=== PATIENT | female | born 1970 | race Caucasian/White ===

== ENCOUNTER 2016-11-30 15:31 | Inpatient (IN) | payer MEDICARE, MEDICAID ==
[~2016-11-30] VITALS: Ht 170.2 cm; Wt 83.2 kg
--- NOTE | ~2016-11-30 | CN ---
PATIENT NAME:DEREK MASTERS MEDICAL RECORD: [id number] : 66 LOCATION:D.MS [id number] ADMIT DATE: 12/01/16 ACCOUNT: [id number] CONSULTING PHYSICIAN: POLA NELSON MD REFERRING PHYSICIAN: MELISSA ALLRED MD DATE OF CONSULTATION: 12/08/2016 Surgery Consultation CHIEF COMPLAINT: Abscess. HISTORY OF PRESENT ILLNESS: Ms. Mastres is a 46-year-old white female with pancreatitis and alcoholic liver cirrhosis, who was noted to have some painful lesions that come up on her left wrist and her posterior neck. These came up over the last few days and have gotten large quite quickly. The one on her posterior neck has grown significantly in size, it is red and tender to touch. She has had no purulence or drainage from either one of these. She has had lesions like this in the past. PAST MEDICAL HISTORY: 1. Alcoholic cirrhosis. 2. Hypertension. 3. History of TIAs. 4. History of seizures. 5. Depression. 6. Anxiety. PAST SURGICAL HISTORY: Cholecystectomy. ALLERGIES: PENICILLIN, TYLENOL, IODINE, FLAGYL, DARVOCET, TEGRETOL AND STEROIDS. MEDICATIONS: Effexor, Neurontin, Desyrel, fentanyl patch and oxycodone. SOCIAL HISTORY: She is a current everyday smoker. Alcohol, she has a history of alcohol abuse. FAMILY HISTORY: Noncontributory. REVIEW OF SYSTEMS: GENERAL: No fevers, chills, weakness or fatigue. She does have history of anxiety and depression. CENTRAL NERVOUS SYSTEM: Denies headaches, numbness or tingling. CARDIOVASCULAR: She has got chest pain, but no palpitations. INFECTIOUS DISEASE: No fever or chills. GASTROINTESTINAL: She reports nausea, vomiting, abdominal pain, but no diarrhea or constipation. HEMATOLOGIC: No known bleeding disorders. PULMONARY: No cough, wheezing or shortness of breath. MUSCULOSKELETAL: No joint pain, but she has pain in her neck. SKIN: She has multiple lesions on the skin. PHYSICAL EXAMINATION: VITAL SIGNS: She is currently afebrile. Vital signs are stable. GENERAL: She is mildly obese female, in no apparent distress. CONSULT REPORT [id number] DEREK MASTERS HEENT: Sclerae is nonicteric. HEART: Regular rate and rhythm. LUNGS: There is no audible wheezing. EXTREMITIES: She has no swelling to any of her extremities. SKIN: She has a small abscess on the left lateral wrist, another larger indurated region with erythema on the posterior neck with no palpable fluctuance, but significant tenderness to palpation. She also has a small area of cellulitis on her chin. NEUROLOGIC: Grossly intact. ASSESSMENT: 1. Neck and left wrist cellulitis/abscess. 2. Alcoholic cirrhosis. 3. Acute pancreatitis. 4. Acute leukocytosis. PLAN: We will schedule the patient for an I&D of the neck and left wrist abscesses tomorrow in the operating room. We will continue p.o. antibiotics for the time being. TRANSINT:[id number] Voice Confirmation ID: [id number] DOCUMENT ID: [id number] POLA NELSON MD CC: [id number] DICTATION DATE: 12/09/16 1545 HEAD OF MARKETING ADOMETRY: 12/09/16 2144 ADM IN [facility] [address] [place] [address]
--- NOTE | ~2016-11-30 | OP ---
PATIENT NAME: DEREK VALENZUELA MEDICAL RECORD: [id number] :66 LOCATION:D.MS [id number] ADMISSION DATE:12/01/16 SURGEON: POLA NELSON MD OPERATION DATE: 12/01/16 DATE OF OPERATION: 12/09/2016 PREOPERATIVE DIAGNOSES: 1. Posterior neck and left wrist abscess. 2. Pancreatitis. 3. Alcoholic liver cirrhosis. 4. Hypertension. 5. Diabetes mellitus. POSTOPERATIVE DIAGNOSES: 1. Posterior neck and left wrist abscess. 2. Pancreatitis. 3. Alcoholic liver cirrhosis. 4. Hypertension. 5. Diabetes mellitus. PROCEDURE: I&D of the posterior neck and left wrist. SURGEON: Pola Nelson MD REPORT OF PROCEDURE: The patient's posterior neck and left wrist were prepped and draped in sterile fashion. A skin incision was made overlying the lesion on the left neck and there was some purulent material encountered. Cultures were taken times 2. The wound was then irrigated out with normal saline and suctioned free of any fluid. The wound was then packed with quarter-inch plain packing strips and dressed with gauze and tape. The left wrist was then approached. Again, a small incision was made transversely over the area of fluctuance and a small amount of pus was encountered. The pus was irrigated out with peroxide and suctioned free. We then packed this with plain quarter inch packing strips and dressed it with a Band-Aid. COMPLICATIONS: None. CONDITION: Stable. ANESTHESIA: General endotracheal. BLOOD LOSS: Minimal. TRANSINT:[id number] Voice Confirmation ID: [id number] DOCUMENT ID: [id number] POLA NELSON MD CC: [id number] DICTATION DATE: 12/09/16 1541 CABBAGE SALTER: 12/09/16 213 ADM IN [facility] [address] [place] [address]
--- NOTE | 2016-11-30 15:52 | NUR ---
TRANSFERED FROM ADMISSIONS BY W/C. OREINTED TO ROOM. CALL LIGHT IN REACH. WILL CONT. PLAN OF CARE.
[2016-11-30] MEDS ORDERED: NEURONTIN 400400 MG PO (15:56)
[2016-11-30] MEDS ORDERED: EFFEXOR XR75 MG PO (15:56)
[2016-11-30] MEDS ORDERED: DESERYL100 MG PO ×2 (15:57→15:58)
[2016-11-30] MEDS ORDERED: DURAGESIC1 PATCH .7 TRANSDERM (15:59)
[2016-11-30] MEDS ORDERED: OXYCODONE HCL5 MG PO (15:59)
[2016-11-30 16:19] VITALS: BP 141/106
[2016-11-30 16:20] VITALS: BP 141/106; BMI 29.0
[2016-11-30 16:42] LABS: BASOPHILS 0.3 % (0-2); EOSINOPHILS 4.5 % (0-7); HEMATOCRIT 43.4 % (36.0-48.0); HEMOGLOBIN 14.8 g/dL (12-16); IMMATURE GRANULOCYTES 0.3 % (0-5); LYMPHOCYTES 24.8 % (15-50); MCH 32.7 pg (26.0-34.0); MCHC 34.1 g/dL (31.0-37.0); MEAN PLATELET VOLUME 10.2 fL (7.4-10.4); MONOCYTES 6.4 % (2-11); NEUTROPHILS 63.7 % (40-80); PLATELET COUNT 376 10x3/uL (130-400); RBC 4.52 10x6/uL (4.00-5.40); RDW 14.3 % (11.5-14.5); WBC 17.4 10x3/uL (4.8-10.8)
[2016-11-30 16:52] LABS: APTT 24.6 SECONDS (22.8-39.4); INR 0.91 (0.85-1.17); PROTIME 12.1 SECONDS (11.6-15.0)
[2016-11-30 17:03] LABS: MAGNESIUM - SERUM 1.9 mg/dL (1.8-2.4)
[2016-11-30 18:50] LABS: CKMB 0.7 U/L (0.0-3.6); CREATINE KINASE 67 UL (21-215); TROPONIN-I < 0.017 ng/mL (0.000-0.060)
--- NOTE | 2016-11-30 19:37 | NUR ---
RESUMED CARE OF PT, UP IN BED ROCKING BACK AND FORTH IN PAIN. STATES HER PAIN IS WORSE AFTER EATING AND HAD NO RELIEF FROM MORPHINE EARLIER. [address] ST ON TELEMETRY. PAGE INTO DESTINEY VALENTE, AWAITING CALL BACK. CALL LIGHT IN REACH. SEE NURSE ASSESSMENT. WILL CONTINUE TO MONITOR.
[2016-11-30 21:05] VITALS: BP 149/96
[2016-11-30 22:59] LABS: CKMB 0.8 U/L (0.0-3.6); CREATINE KINASE 57 UL (21-215)
[2016-11-30 23:00] LABS: TROPONIN-I < 0.017 ng/mL (0.000-0.060)
--- NOTE | 2016-11-30 23:44 | NUR ---
NECK CUTTER AT BEDSIDE TO OBTAIN VITALS, CALL LIGHT IN REACH. WILL CONTINUE WITH PLAN OF CARE.
[2016-12-01 01:19] VITALS: BP 155/110
[2016-12-01 05:39] LABS: CKMB 0.5 U/L (0.0-3.6); CREATINE KINASE 49 UL (21-215)
[2016-12-01 05:41] LABS: TROPONIN-I < 0.017 ng/mL (0.000-0.060)
[2016-12-01 06:18] VITALS: BP 144/93
--- NOTE | 2016-12-01 06:21 | NUR ---
NO CHANGES FROM PREVIOUS ASSESSMENT, MORPHINE 4MG IVP GIVEN FOR ABDOMINAL PAIN. STATES "SHE WANTS TO EAT, SHE'S ACTUALLY HUNGRY AND DOESN'T SEE WHY WE WON'T LET HER EAT. PANCREATITIS FOR HER IS A CHRONIC CONDITION." WILL CONTINUE TO MONITOR. CALL LIGHT IN REACH.
[2016-12-01 08:09] VITALS: BP 140/88
[2016-12-01 11:35] LABS: BASOPHILS 0.5 % (0-2); EOSINOPHILS 4.1 % (0-7); HEMATOCRIT 39.3 % (36.0-48.0); HEMOGLOBIN 13.1 g/dL (12-16); IMMATURE GRANULOCYTES 0.3 % (0-5); LYMPHOCYTES 18.9 % (15-50); MCH 32.1 pg (26.0-34.0); MCHC 33.3 g/dL (31.0-37.0); MCV 96.3 fL (80.0-100.0); MEAN PLATELET VOLUME 10.4 fL (7.4-10.4); NEUTROPHILS 70.2 % (40-80); PLATELET COUNT 376 10x3/uL (130-400); RBC 4.08 10x6/uL (4.00-5.40); RDW 14.5 % (11.5-14.5); WBC 14.5 10x3/uL (4.8-10.8)
[2016-12-01 11:52] LABS: ALKALINE PHOSPHATASE 110 U/L (46-116); ALT (SGPT) 27 U/L (10-68); BILIRUBIN - TOTAL 0.52 mg/dL (0.2-1.3); CALC OSMOLALITY 278 mosm/kg (275-300); CALCIUM 9.1 mg/dL (8.5-10.1); CARBON DIOXIDE 28.7 mmol/L (21.0-32.0); CHLORIDE - SERUM 101 mmol/L (98-107); CREATININE - SERUM 0.8 mg/dL (0.6-1.3); GLUCOSE 134 mg/dL (74-106); LIPASE 591 U/L (73-393); POTASSIUM - SERUM 3.6 mmol/L (3.5-5.1); PROTEIN - SERUM 7.2 g/dL (6.4-8.2); SODIUM 139 mmol/L (136-145); UREA NITROGEN 10 mg/dL (7-18); eGFR NON AFRICAN AMERICAN 81 mL/min (90-120)
[2016-12-01 11:53] LABS: AMYLASE - SERUM 58 U/L (25-115)
[2016-12-01 12:52] VITALS: BP 176/101
[2016-12-01 13:44] VITALS: Ht 170.2 cm; Wt 83.2 kg
--- NOTE | 2016-12-01 15:27 | NUR ---
URINE SPECIMEN COLLECTED AND TAKEN TO LAB FOR UA. WILL MONITOR.
[2016-12-01 16:15] LABS: APPEARANCE CLEAR (CLEAR); BILIRUBIN NEGATIVE (NEGATIVE); COLOR DK YELLOW (YELLOW); GLUCOSE NEGATIVE (NEGATIVE); KETONE LARGE mg/dL (NEGATIVE); LEUKOCYTE ESTERASE NEGATIVE (NEGATIVE); NITRITE NEGATIVE (NEGATIVE); PROTEIN TRACE mg/dL (NEGATIVE); UROBILINOGEN NORMAL (NORMAL)
[2016-12-01 16:19] VITALS: BP 151/87
[2016-12-01 19:00] VITALS: BP 184/103
--- NOTE | 2016-12-01 19:30 | NUR ---
RESUMED CARE OF PT, UP ON SIDE OF BED RESPIRATIONS EVEN AND UNLABORED ON 2LPM VIA NC. 93 SR ON TELEMETRY. NO IV AT THIS TIME. CALL LIGHT IN REACH. WILL CONTINUE TO MONITOR. SEE NURSE ASSESSMENT.
--- NOTE | 2016-12-01 22:41 | NUR ---
ATTEMPTED TO RESITE IV, WHEN I GRABBED HER ARM TO EXPOSE HER AC SHE JERKED IT STRAIGHT UP AND YELLED SHUT UP. WHEN ASKING IF SHE WAS OK, PT STATED "YES I'M FINE NOW, IT'S GONE." WHEN I ASKED WHAT'S GONE, SHE SAID "NEVERMIND, JUST DON'T WORRY ABOUT IT, I'M FINE NOW. DON'T YOU EVER JUST HAVE TO YELL WHEN YOU GET MAD?" UNSUCCESSFUL AT IV, MATHEW QIU ATTEMPTED WELL. PT LET US EACH STICK ONE TIME, THEN REFUSED ANYMORE STICKS. CALL LIGHT IN REACH. WILL CONTINUE TO MONTIOR.
[2016-12-02] VITALS (16 sets, daily range): BP systolic 100–197; BP diastolic 58–122
--- NOTE | 2016-12-02 00:15 | NUR ---
NORMA AT BEDSIDE TO OBTAIN VITALS, FOUND PT TAKING MEDICATIONS FROM HER PURSE. ASKED PT ABOUT MEDS, SHE HANDED THEM OVER TO THIS NURSE. STATES THAT THEY ARE ALL THE MEDS THAT SHE TAKES AT HOME. EXPLAINS TO PT THAT I GAVE HER THOSE MEDS TONIGHT, AND THAT SHE CAN'T KEEP HER MEDS IN HER ROOM. I WILL INVENTORY MEDS AND SEND TO PHARMACY IN AM.
--- NOTE | 2016-12-02 00:48 | NUR ---
RESPONDED TO BLOOD CURDDLING SCREAMS COMING FROM BATHROOM, PT EXITING BATHROOM NURSING RESPONDED TO ROOM. ACTED VERY SURPRISED TO SEE NURSING, ASKED IF EVERYTHING WAS OK, SHE STATES YES I'M FINE. ASKED HER WHAT WAS SHE SCREAMING AT, STATES SHE HAD TO KELSIE AWAY HER DEMONS. SHE ADMITS TO HEARING VOICES, BUT WON'T TELL US WHAT THEY'RE SAYING. ASKS IS IT NOT OK TO SCREAM IN HER OWN ROOM, EXPLAIN TO PT THAT IT REALLY ISN'T OK TO DO THAT IN A HOSPITAL SETTING. AND THAT WE ARE CONCERNED FOR HER SAFETY. NOTIFIED PEANUT FARMER, INSTRUCTED TO CALL DESTINEY MARAVILLA. ORDERS TO MOVE PT TO ICU FOR CLOSER OBSERVATION. AWAITING ROOM ASSIGNMENT
--- NOTE | 2016-12-02 01:53 | NUR ---
REPORT GIVEN TO JODIE QIU.
--- NOTE | 2016-12-02 02:10 | NUR ---
Received patient from 2114 to 2305. Patient Ambulated self to bed without assistance, assessment completed per flowsheet. Patient AO x4, calm and cooperative. Eyes PERRLA @ 4mm with brisk response, sclera is reddened. S1/S2 noted NSR on telemetry with HR 97, rhythmic and regular. Breathing is even and unlabored on room air with O2 sat 97%, Inspiratory and expiratory wheeze noted bilateral upper and mid with diminished lower. Abdomen is soft and round, tender to palpation with patient c/o Upper right quadrant radiating throughout. Patient ambulates to bedside commode without assistance. Full ROM all extremities with all pulses palpable, cap refill < 3 sec. 20g PIV L forearm, patent. Patient states pain 6/10 abdominal, will provide PRN medication and reassess. Soup and crackers provided for snack, no further needs at this time. All VSS and will continue to monitor.
--- NOTE | 2016-12-02 03:15 | NUR ---
Dilaudid 0.5 reordered per Rowan, IV access place L forearm.
--- NOTE | 2016-12-02 05:00 | NUR ---
Patient laying in bed with eyes closed, Lab at bedside. Patient appears not to notice blood draw ongoing, then opens eyes and aksed "what are you guys doing?" Explained to patient, AM labs collected without difficulty.
[2016-12-02 05:25] LABS: BASOPHILS 0.5 % (0-2); EOSINOPHILS 1.3 % (0-7); HEMATOCRIT 37.6 % (36.0-48.0); HEMOGLOBIN 12.6 g/dL (12-16); IMMATURE GRANULOCYTES 0.4 % (0-5); LYMPHOCYTES 19.8 % (15-50); MCH 32.2 pg (26.0-34.0); MCHC 33.5 g/dL (31.0-37.0); MCV 96.2 fL (80.0-100.0); MEAN PLATELET VOLUME 10.3 fL (7.4-10.4); MONOCYTES 6.9 % (2-11); NEUTROPHILS 71.1 % (40-80); PLATELET COUNT 376 10x3/uL (130-400); RBC 3.91 10x6/uL (4.00-5.40); RDW 14.7 % (11.5-14.5); WBC 15.2 10x3/uL (4.8-10.8)
[2016-12-02 05:42] LABS: ALBUMIN 2.9 g/dL (3.4-5.0); ALKALINE PHOSPHATASE 108 U/L (46-116); ALT (SGPT) 23 U/L (10-68); CALCIUM 9.2 mg/dL (8.5-10.1); CARBON DIOXIDE 30.2 mmol/L (21.0-32.0); CHLORIDE - SERUM 100 mmol/L (98-107); CREATININE - SERUM 0.8 mg/dL (0.6-1.3); LIPASE 1229 U/L (73-393); POTASSIUM - SERUM 3.9 mmol/L (3.5-5.1); SODIUM 137 mmol/L (136-145); UREA NITROGEN 12 mg/dL (7-18); eGFR NON AFRICAN AMERICAN 81 mL/min (90-120)
[2016-12-02 05:44] LABS: AMYLASE - SERUM 76 U/L (25-115); CALC OSMOLALITY 285 mosm/kg (275-300); GLUCOSE 314 mg/dL (74-106)
[2016-12-02 06:44] LABS: UDS - AMPHET NEGATIVE QUAL (NEGATIVE); UDS - BARB NEGATIVE QUAL (NEGATIVE); UDS - BENZO NEGATIVE QUAL (NEGATIVE); UDS - COCAINE NEGATIVE QUAL (NEGATIVE); UDS - METH NEGATIVE QUAL (NEGATIVE); UDS - OPIATE POSITIVE QUAL (NEGATIVE); UDS - PCP NEGATIVE QUAL (NEGATIVE); UDS - THC NEGATIVE QUAL (NEGATIVE)
--- NOTE | 2016-12-02 09:19 | NUR ---
0715-RECIEVED PER FLOW SHEEET-STATING PAIN LEVEL 1-BRUFBIKH-AHVOGRU REQUIRES PAIN MEDICATION-DILAUDID 0.5MG IV GIVEN ORDERED-AMBULATING IN RM-REMOVED MONITORING EQUIPMENT-PT AGREEABLE TO PLACE MONITOR NVN-SPCDN-BFPC NEEDED 5331-CONSULT FOR GURETSKY/PSYCHOLOGICAL EVAL FAXED TO [facility] AND DESK NOTIFIED OF CONSULT AND PENDING FAX-CONFIRMATION RECIEVED-PT STATES WAS OFFICE NURSE IN ENDOCRINOLOGY OFFICE-[place] AND NOW DISABLED-PRASHANT
--- NOTE | 2016-12-02 09:38 | NUR ---
FOUND SALES REPRESENTATIVE PUBLIC UTILITIES ON BEDSIDE TABLE -REMOVED FROM PT AND LABELED-PLACED IN MED BOX FOR 2302
--- NOTE | 2016-12-02 10:00 | NUR ---
OUT BURST OF CRYING-STATES DOES NOT KNOW WHY AND NOTHING
--- NOTE | 2016-12-02 10:28 | NUR ---
CRYING OUTBURST-STATES REASON NOTHING
--- NOTE | 2016-12-02 11:46 | NUR ---
AMBULATORY AD [facility]
--- NOTE | 2016-12-02 11:47 | NUR ---
PATIENT DOES TAKE MEDS REQUESTED. THEN YELLS OUT AT DR. DIAZ THAT SHE WANTS TO GO HOME. PATIENT IS STILL SITTING IN CHAIR.
--- NOTE | 2016-12-02 13:19 | NUR ---
PATIENT JUMP UP OUT OF CHAIR AND RAN OUT OF ROOM PULLING IV OUT IN THE PROCESS. BLOOD DRIPPING ONTO FLOOR. PATIENT WAS EASILY DIRECTED BACK INTO ROOM AND HALADOL GIVEN. PATIENT IS HALLUCINATING.
--- NOTE | 2016-12-02 14:55 | NUR ---
PATIENT IS SLEEPING IN BED AT THIS TIME. CALL LIGHT WITHIN REACH AND BED IN LOW POSISTION.
--- NOTE | 2016-12-02 15:43 | NUR ---
Patient confused, unable to assess dc plans at this time.
--- NOTE | 2016-12-02 15:55 | NUR ---
PT SCREAMING OUT AT THE TOP OF HER LUNGS. SHE IS INSISTING WE GET THE DOCTORS ON THE PHONE "RIGHT NOW" SHE SAYS SHE NEEDS "TO GO TO A MENTAL HOSPITAL WHERE I CAN GET SOME REAL HELP" SHE IS DISTURBING OTHER PATIENTS AND FAMILY MEMBERS. SAYS SHE WILL CONTINUE TO SCREAM OUT UNTIL SHE GETS HELP. DR JOE BETANCOURT. PT HAS BEEN GIVEN HALDOL TO HELP WITH HER OUTBURSTS BUT WITHOUT ANY REAL RESULTS.
--- NOTE | 2016-12-02 16:55 | NUR ---
PT HAS BEEN SCREAMING OUT LOUD POSSIBLE. WILL NOT QUIET ASKED. AT ONE POINT PT BECAME UNHOOKED FROM MONITORING EQUIPMENT AND RAN FROM HER ROOM YELLING OUT AND TRYING TO LEAVE THE UNIT. DID EVENTUALLY ALLOW US TO ESCORT HER BACK TO HER ROOM. PT WAS RITHING IN HER BED. PLACED IN RESTRAINTS. DR DIAZ CALLED. ORDER FOR TORRIE PROVIDED. PT VIGOROUSLY MASTURBATING AND CALLING OUT. TORRIE ADMINISTERED.
--- NOTE | 2016-12-02 18:29 | NUR ---
PIV STARTED IN LEFT UPPER ARM. IV FLUIDS RESTARTED. PT STILL PERIODICALLY YELLING OUT. YELLING OUT AT HER FATHER WHO IS NOT HERE. MASTERBATING.
--- NOTE | 2016-12-02 19:00 | NUR ---
1899: Pt rec'd resting HOB 30 degrees with eyes open. Pupils ROMMEL+ bilat. SMCx4=bilat custom seamstress. Pt not oriented to time and verbal reorientation successful at this time. Pt breathing RA RR20x with SPO2 96%. Lungs clear with auscultation and MMP with no cyanosis noted. S1S2 variable HR at this time showing rate 55-100bpm increased with stimulation. PPPx4=bilat. ABD soft NT BS x4 active. SR up x2, call light in reach, and all alarms on and intact. Bed alarm on. SCDs off related to pt restlessness and increased aggitation with SCDs on. Left arm PIV with 1/2NS infusing without difficulty.
--- NOTE | 2016-12-02 19:21 | NUR ---
PT SCREAMING OUT "GOD TAKE ME HOME, GOD TAKE ME HOME, GOD TAKE ME HOME" HAS WET HERSELF.
--- NOTE | 2016-12-02 21:00 | NUR ---
2100: Pt sitting up in bed screaming "Let me go!" Pt calmed easily via verbal. Pt states; "I am going home now." Explained to patient reason for admission and possible MD hold. Pt verbalized understanding. Pt assisted with bedpan. Pt >600cc clear yellow UOP. Pt linen and gown changed at this time. Pt HR 80-90's and SR on CM.
--- NOTE | 2016-12-02 23:00 | NUR ---
2300: Pt calm and cooperative at this time. Restraints released and remain off at this time. Pt LOCx3 oriented to person, place, and time. Pt provided water per request and pt able to turn self. Pt uses call light/TV and stated "Thank you for taking these off."
[2016-12-03] VITALS (24 sets, daily range): BP systolic 83–173; BP diastolic 43–118
--- NOTE | 2016-12-03 05:00 | NUR ---
0500: Pt remains calm and cooperative. Pt LOCx3. Pt assisted with bed armando and partial linen change done (pink pad) ritika care done per pt. Pt able to repostion self. Pt remains SR 60's at this time. Remains RA RR16x with SPO2 97%.
[2016-12-03 05:25] LABS: BASOPHILS 0.4 % (0-2); EOSINOPHILS 0.9 % (0-7); HEMATOCRIT 36.4 % (36.0-48.0); HEMOGLOBIN 12.1 g/dL (12-16); IMMATURE GRANULOCYTES 0.3 % (0-5); LYMPHOCYTES 21.2 % (15-50); MCHC 33.2 g/dL (31.0-37.0); MCV 96.3 fL (80.0-100.0); MEAN PLATELET VOLUME 10.6 fL (7.4-10.4); MONOCYTES 7.5 % (2-11); NEUTROPHILS 69.7 % (40-80); PLATELET COUNT 410 10x3/uL (130-400); RBC 3.78 10x6/uL (4.00-5.40); RDW 14.8 % (11.5-14.5); WBC 14.8 10x3/uL (4.8-10.8)
[2016-12-03 05:36] LABS: ALBUMIN 2.9 g/dL (3.4-5.0); ALKALINE PHOSPHATASE 86 U/L (46-116); ALT (SGPT) 23 U/L (10-68); AMYLASE - SERUM 89 U/L (25-115); CALC OSMOLALITY 284 mosm/kg (275-300); CARBON DIOXIDE 26.4 mmol/L (21.0-32.0); CHLORIDE - SERUM 104 mmol/L (98-107); CREATININE - SERUM 0.7 mg/dL (0.6-1.3); GLUCOSE 189 mg/dL (74-106); LIPASE 1219 U/L (73-393); POTASSIUM - SERUM 3.4 mmol/L (3.5-5.1); PROTEIN - SERUM 6.6 g/dL (6.4-8.2); SODIUM 141 mmol/L (136-145); TRIGLYCERIDE 159 mg/dL (30-200); UREA NITROGEN 9 mg/dL (7-18); eGFR NON AFRICAN AMERICAN > 90 mL/min (90-120)
--- NOTE | 2016-12-03 06:00 | NUR ---
0600: Pt assisted with bedpan. Pt voided 200cc clear yellow UOP.
--- NOTE | 2016-12-03 07:00 | NUR ---
0700: Pt requested pain Rx for ABD.
--- NOTE | 2016-12-03 08:00 | NUR ---
ASSESSMENT COMPLETE - PT AA&O X 4 - PT C/O PAIN GAVE DILAUDID PER ORDER - SEE JORDAN QUINTEROSOC
--- NOTE | 2016-12-03 10:00 | NUR ---
JOE ZARATE ON UNIT FOR ASSESSMENT - AWAITING ORDERS
--- NOTE | 2016-12-03 12:00 | NUR ---
PT UP TO BSC - MED FORMED STOOL AND DARK URINE - PT ASSISTED WITH STAND BY BACK TO BED. CPOC
--- NOTE | 2016-12-03 12:00 | NUR ---
PT REQUESTING DILALDID INJECTION - ORDER FOR EVERY 6 HOURS - WILL CALL MD TO ASK FOR CHANGE OF PAIN MED.
--- NOTE | 2016-12-03 14:10 | NUR ---
PT UP TO BSC - ASSISTED BACK TO BED WITH STAND BY ASSISTANCE
--- NOTE | 2016-12-03 14:44 | NUR ---
PT RESTING IN BED WITH EYES CLOSED RESPIRATIONS REG RATE AND RHYTHM
--- NOTE | 2016-12-03 15:26 | NUR ---
ASSESSMENT COMPLETE - PT ASKED TO BE TRANSFERRED TO THE FLOOR - EXPLAINED PT IS NOT STABLE FOR TRANSFER. PT EAGER TO BE IN A REGULAR ROOM. PT VERBALIZED UNDERSTANDING TO THE PLAN OF CARE.
--- NOTE | 2016-12-03 16:00 | NUR ---
I&O COMPLETE - PT REQUESING DILAUTID PAIN MEDICATION - REVIEWED MAR - INFORMED PT RX WAS GIVEN AT 13:50 NEXT AVAILABLE DOSE IS 17:50 - PT DISAPPOINTED IN HAVING TO WAIT FOR PAIN MEDICATION. PT CLOSED EYES TO REST - RESP REG RATE AND RYTHM. CPOC
--- NOTE | 2016-12-03 17:09 | NUR ---
PLACED FENTANYL PATCH ON RIGHT SHOULDER - LOOK EXTENSIVELY FOR PREVIOUS PATCH BUT WAS UNABLE TO LOCATE PATCH TO REMOVE. PT AA&O X4. CPOC
--- NOTE | 2016-12-03 18:30 | NUR ---
MANAGER TALENT GAVE DILAUDID IV PUSH SEE MAR - PT RESTING SUPINE IN BED AA&O X4. CHARGEN PLACED IV RIGHT AC - PATENT CPOC
--- NOTE | 2016-12-03 19:00 | NUR ---
1900: Pt rec'd resting HOB and requesting to get OOB to bathroom. Pt assisted to bedside commode with minimal assist. Pt gait steady and moves x4 extrem vs gravity without difficulty. Pt follows all commands and is cooperative. Pt c/o pain in ABD that occasionally increases at rest. Pt returned to bed without difficulty. Pt breathing RA RR16x with SPO2 96%. Lungs clear bilat with auscultation. MMP and no cyanosis noted. S1S2 regular SR 70-80bpm on CM. PPPx4=bilat. Right arm PIV with 1/2NS infusing. ABD soft tender BS hypo x4. Pt denies difficulty with elimination. All alarms. SCDs remain off at this time.
[2016-12-04] VITALS (13 sets, daily range): BP systolic 141–177; BP diastolic 91–109
--- NOTE | 2016-12-04 01:00 | NUR ---
REPORT RECEIVED AND INITIAL PATIENT ASSESSMENT COMPLETED. PT IS RESTING IN ROOM QUIETLY VSS. WILL MONITOR THROUGHOUT SHIFT.
--- NOTE | 2016-12-04 03:00 | NUR ---
REASSESSMENT COMPLETED. SEE FLOWSHEET FOR FULL DETAILS. PT B/P HAS BEEN ELEVATED. PRN CATAPRES GIVEN. WILL CONTINUE TO MONITOR
[2016-12-04 03:58] LABS: BASOPHILS 0.7 % (0-2); EOSINOPHILS 2.8 % (0-7); HEMATOCRIT 36.3 % (36.0-48.0); HEMOGLOBIN 12.1 g/dL (12-16); IMMATURE GRANULOCYTES 0.4 % (0-5); LYMPHOCYTES 32.9 % (15-50); MCH 31.9 pg (26.0-34.0); MCHC 33.3 g/dL (31.0-37.0); MCV 95.8 fL (80.0-100.0); MEAN PLATELET VOLUME 10.4 fL (7.4-10.4); MONOCYTES 8.1 % (2-11); NEUTROPHILS 55.1 % (40-80); PLATELET COUNT 379 10x3/uL (130-400); RBC 3.79 10x6/uL (4.00-5.40); RDW 14.3 % (11.5-14.5); WBC 13.7 10x3/uL (4.8-10.8)
[2016-12-04 04:14] LABS: ALBUMIN 2.8 g/dL (3.4-5.0); ALKALINE PHOSPHATASE 92 U/L (46-116); AMYLASE - SERUM 77 U/L (25-115); BILIRUBIN - TOTAL 0.33 mg/dL (0.2-1.3); CALCIUM 8.8 mg/dL (8.5-10.1); CARBON DIOXIDE 27.2 mmol/L (21.0-32.0); CHLORIDE - SERUM 103 mmol/L (98-107); CREATININE - SERUM 0.8 mg/dL (0.6-1.3); LIPASE 755 U/L (73-393); POTASSIUM - SERUM 3.3 mmol/L (3.5-5.1); PROTEIN - SERUM 6.6 g/dL (6.4-8.2); SODIUM 139 mmol/L (136-145); UREA NITROGEN 8 mg/dL (7-18); eGFR NON AFRICAN AMERICAN 81 mL/min (90-120)
[2016-12-04 04:20] LABS: ALT (SGPT) 29 U/L (10-68); CALC OSMOLALITY 277 mosm/kg (275-300); GLUCOSE 135 mg/dL (74-106)
--- NOTE | 2016-12-04 07:15 | NUR ---
ASSESSMENT COMPLETE. AAOX 4. PLEASANT AFFECT. REQUESTING NICOTINE PATCH. PAIN IN ABDOMEN, REQUESTING PAIN MEDICATION BUT GOT IT AT 0636. RAC PIV PATENT. NPO WITH ICE CHIPS. LUNGS CLEAR. ROOM AIR. NSR RATE 60'S. RADIAL AND PEDAL PULSES PALP. DENIES OTHER NEEDS. INSTRUCTED TO CALL NURSE WHEN SHE NEEDS TO USE BEDSIDE COMMOADE.
--- NOTE | 2016-12-04 09:10 | NUR ---
PATIENT CONTINUES TO REQUEST PAIN MEDICATION. TOLD HER SHE CAN HAVE IT AT 1030. SAYS PAIN IS 7/10 IN ABDOMEN BUT SHE CAN WAIT. GIVING ZOFRAN PER HER REQUEST. SHE SAYS IT "SETTLES HER STOMACH." NO DIFFICULTY TAKING MEDS.
--- NOTE | 2016-12-04 09:45 | NUR ---
DR. DIAZ AT BEDSIDE. NEW ORDERS RECEIVED
--- NOTE | 2016-12-04 11:34 | NUR ---
ASSISTED PATIENT TO BEDSIDE COMMOADE. MOSTLY MOVED INDEPENDENTLY, MINIMAL ASSIST.
--- NOTE | 2016-12-04 12:50 | NUR ---
PT HAD MODERATE SIZED BM. SHE REQUESTED MORE PAIN MEDICINE. I TOLD HER SHE COULD HAVE MORE AT 1440. SHE REQUESTED PERCOCET. I TOLD HER IT WAS NOT ON HER MED RECORD THAT I COULD GIVE HER. SHE THEN ASKED FOR ZOFRAN. I TOLD HER I COULD GIVE HER SOME AT 1330
--- NOTE | 2016-12-04 14:35 | NUR ---
PATIENT REQUSTED PAIN MEDS. GIVEN PER ORDER.
--- NOTE | 2016-12-04 16:36 | NUR ---
CALLED DR. DIAZ PER PATIENT REQUEST FOR SOME ADVIL. AFTER I TOLD HER I WOULD CALL ASKING ABOUT ADVIL, SHE SAID, "COULD YOU ALSO ASK IF HE CAN GO UP ON MY DILAUDID? IT SEEMS LIKE IT DOESNT LAST BUT FOR 30 MINUTES AND REALLY DOESN'T HELP THAT MUCH." I TOLD HER I WOULD MENTION IT TO HIM.
--- NOTE | 2016-12-04 17:45 | NUR ---
DR. DIAZ SAID WE COULD START ADVIL.
--- NOTE | 2016-12-04 18:31 | NUR ---
PT SAYS IV ISNT WORKING. NO SIGNS OF LEAKAGE, REDNESS, SWELLING, OR STREAKING. SOFT, NONTENDER. PT INSISTS ON ANOTHER IV BECAUSE HER PAIN MEDICATION IS DUE SOON.
--- NOTE | 2016-12-04 18:54 | NUR ---
TRIED TO CALL REPORT X2. WAS TOLD THE NURSE WAS NOT THERE YET.
--- NOTE | 2016-12-04 19:15 | NUR ---
PT SITTING UP IN BED. ABLE TO COMMUNITCATE APPROPRIATELY. VSS NO DISTRESS NOTED. CALL LIGHT IN REACH. GATHER BELONGINGS TO TAKE TO FLOOR BY SELF.
--- NOTE | 2016-12-04 19:55 | NUR ---
PT TRANSFERRED TO [facility]. CHART GIVEN.
--- NOTE | 2016-12-05 03:13 | NUR ---
CALL LIGHT IN REACH, WILL CONTINUE WITH PLAN OF CARE.
[2016-12-05 04:00] VITALS: BP 144/93
[2016-12-05 06:50] LABS: BASOPHILS 0.7 % (0-2); EOSINOPHILS 4.5 % (0-7); HEMATOCRIT 35.8 % (36.0-48.0); HEMOGLOBIN 11.8 g/dL (12-16); IMMATURE GRANULOCYTES 0.4 % (0-5); LYMPHOCYTES 25.5 % (15-50); MCH 31.9 pg (26.0-34.0); MCV 96.8 fL (80.0-100.0); MEAN PLATELET VOLUME 10.7 fL (7.4-10.4); MONOCYTES 8.6 % (2-11); NEUTROPHILS 60.3 % (40-80); PLATELET COUNT 445 10x3/uL (130-400); RDW 14.4 % (11.5-14.5); WBC 12.3 10x3/uL (4.8-10.8)
[2016-12-05 07:16] LABS: ALBUMIN 2.7 g/dL (3.4-5.0); ALKALINE PHOSPHATASE 81 U/L (46-116); ALT (SGPT) 32 U/L (10-68); CALCIUM 8.4 mg/dL (8.5-10.1); CARBON DIOXIDE 26.1 mmol/L (21.0-32.0); CHLORIDE - SERUM 105 mmol/L (98-107); CREATININE - SERUM 0.6 mg/dL (0.6-1.3); LIPASE 586 U/L (73-393); POTASSIUM - SERUM 3.1 mmol/L (3.5-5.1); PROTEIN - SERUM 5.9 g/dL (6.4-8.2); SODIUM 140 mmol/L (136-145); eGFR NON AFRICAN AMERICAN > 90 mL/min (90-120)
[2016-12-05 07:17] LABS: AMYLASE - SERUM 53 U/L (25-115); CALC OSMOLALITY 280 mosm/kg (275-300); GLUCOSE 188 mg/dL (74-106); UREA NITROGEN 4 mg/dL (7-18)
[2016-12-05 08:00] VITALS: BP 176/97
--- NOTE | 2016-12-05 08:20 | NUR ---
INTRODUCED MYSELF TO PT PRIMARY RN FOR TODAYS SHIFT. PT IS A&O SITTING UP IN BED RESTING QUIETLY DRINKING HER BREAKFAST. SHIFT ASSESSMENT COMPLETED. PT C/O EXCRUIATING ABDOMINAL PAIN AND STATES "IT FEELS LIKE A PHOTOTYPESETTER OPERATOR IN MY STOMACH" PROVIDED PT WITH PRN DILAUDID REQUESTED. PT HAS A R.AC PIV WITH DRSG CDI AND SWAB CAPS IN USE INFUSING 1/2 NS @125ML/HR. PT STATES SHE IS READY FOR REGULAR FOOD AND HOPES HER DIET IS ADVANCED SOON. PT DENIES ANY DIARRHEA OR NAUSEA OR STOMACH ISSUES OTHER THAN THE CONSTANT PAIN. NO FURTHER NEEDS NOTED AT THIS TIME. CL IN REACH, BED IN LOWEST, SIDE RAILS X2. WILL CPOC.
[2016-12-05 12:00] VITALS: BP 198/106
--- NOTE | 2016-12-05 12:09 | NUR ---
PT C/O SEVERE ABDOMINAL PAIN REQUESTED AND PROVIDED WITH PRN PAIN MEDICATION ALONG WITH PRN CLONIDINE FOR HIGH BP ABOVE 180. PT VOICED THANKS AND DENIES ANY FURTHER NEEDS AT THIS TIME. CL IN REACH. WILL CTM.
[2016-12-05 16:41] VITALS: BP 149/103
--- NOTE | 2016-12-05 18:23 | NUR ---
PT C/O HER PIV LEAKING. SITE FLUSHED AND HAS BLOOD RETURN WITHOUT ANY DIFFICULTIES. CHANGED TEGADERM AND SITE NOW PATENT WITHOUT LEAKS. SWAB CAPS IN USE. PT CURRENTLY REQUESTING TO BE DISCONNECTED FROM IV FLUIDS AND WOULD LIKE TO WALK AROUND HER ROOM. WILL CPOC.
--- NOTE | 2016-12-05 20:19 | NUR ---
REPORT GIVEN TO GURINDER IN [facility] IV FOR C/O PAIN.
--- NOTE | 2016-12-05 20:43 | NUR ---
PT RECEIVED TO ROOM 1216 VIA WHEELCHAIR ACCOMPANIED BY HOSPITAL STAFF AT THIS TIME.
--- NOTE | 2016-12-05 21:40 | NUR ---
ADMINISTERED PM MEDS AT THIS TIME. VITAL SIGNS TAKEN. PT BP 157/106. ADMINISTERED CLONIDINE PO PER MD ORDERS FOR DBP OVER 105. PT REQUESTS MOTRIN FOR PAIN 10/29. ASSESSMENT COMPLETED PER FLOW SHEET AT THIS TIME. PT DENIES NEEDS. BED LOW. PHONE AND CALL LIGHT IN REACH. SRX2.
[2016-12-05 21:41] VITALS: BP 157/106
--- NOTE | 2016-12-05 22:36 | NUR ---
REASSESSED PTS PAIN. PT CONTINUES TO RATE PAIN 10/29. DENIES NEEDS. BED LOW. PHONE AND CALL LIGHT IN REACH. SRX2.
[2016-12-06 00:04] VITALS: BP 138/92
--- NOTE | 2016-12-06 00:04 | NUR ---
PT SITTING UP IN BED WATCHING TV. VITAL SIGNS TAKEN. BP 138/92. PT REQUESTS ANOTHER BLANKET. DENIES OTHER NEEDS. BED LOW. PHONE AND CALL LIGHT IN REACH. SRX2. WILL CONTINUE TO MONITOR.
--- NOTE | 2016-12-06 02:11 | NUR ---
PT RESTING QUIETLY AT THIS TIME WITH EYES CLOSED. RESPIRATIONS EVEN, NON-LABORED. NO ACUTE DISTRESS NOTED AT THIS TIME. BED LOW. PHONE AND CALL LIGHT IN REACH. SRX2.
--- NOTE | 2016-12-06 04:01 | NUR ---
PT RESTING QUIETLY WITH EYES CLOSED. AROUSED EASILY. VITAL SIGNS TAKEN. BP 141/103. WILL RECHECK IN ABOUT 30 MINUTES. PT DENIES NEEDS. BED LOW. PHONE AND CALL LIGHT IN REACH. SRX2.
[2016-12-06 04:03] VITALS: BP 141/103
--- NOTE | 2016-12-06 04:34 | NUR ---
PT BP 154/98 AT THIS TIME
--- NOTE | 2016-12-06 05:42 | NUR ---
PT SITTING UP IN BED WATCHING TV. REQUESTS MEDICATION FOR PAIN 10/29. ADMINISTERED DILAUDID IVP PER ORDERS AT THIS TIME. PT DENIES OTHER NEEDS. BED LOW. PHONE AND CALL LIGHT IN REACH. SRX2.
[2016-12-06 06:19] LABS: BASOPHILS 0.8 % (0-2); EOSINOPHILS 3.9 % (0-7); HEMATOCRIT 35.2 % (36.0-48.0); HEMOGLOBIN 11.5 g/dL (12-16); IMMATURE GRANULOCYTES 0.3 % (0-5); LYMPHOCYTES 30.6 % (15-50); MCH 31.9 pg (26.0-34.0); MCHC 32.7 g/dL (31.0-37.0); MCV 97.8 fL (80.0-100.0); MEAN PLATELET VOLUME 11.3 fL (7.4-10.4); NEUTROPHILS 55.4 % (40-80); PLATELET COUNT 480 10x3/uL (130-400); RDW 14.5 % (11.5-14.5); WBC 12.7 10x3/uL (4.8-10.8)
--- NOTE | 2016-12-06 06:29 | NUR ---
PT PIV INFILTRATED AT THIS TIME. REMOVED CATHETER TIP. TIP INTACT. PT TOLERATED WELL. DENIES NEEDS. WILL SEE ABOUT GETTING VASCULAR ACCESS TO RESTART IV. BED LOW. PHONE AND CALL LIGHT IN REACH. SRX2.
[2016-12-06 06:33] LABS: ALBUMIN 2.7 g/dL (3.4-5.0); ALKALINE PHOSPHATASE 84 U/L (46-116); ALT (SGPT) 34 U/L (10-68); AMYLASE - SERUM 43 U/L (25-115); BILIRUBIN - TOTAL 0.34 mg/dL (0.2-1.3); CALC OSMOLALITY 281 mosm/kg (275-300); CALCIUM 8.2 mg/dL (8.5-10.1); CARBON DIOXIDE 26.4 mmol/L (21.0-32.0); CHLORIDE - SERUM 105 mmol/L (98-107); CREATININE - SERUM 0.7 mg/dL (0.6-1.3); GLUCOSE 211 mg/dL (74-106); LIPASE 433 U/L (73-393); POTASSIUM - SERUM 3.4 mmol/L (3.5-5.1); SODIUM 140 mmol/L (136-145); UREA NITROGEN 5 mg/dL (7-18); eGFR NON AFRICAN AMERICAN > 90 mL/min (90-120)
[2016-12-06 07:30] VITALS: BP 142/87
--- NOTE | 2016-12-06 07:30 | NUR ---
PT WAS RECEIVED LYING IN BED SLEEPING. AWAKENED. VSS. GEN- SLEEPING BUT AWAKEN. LUNGS- WITH WHEEZING. HEART- RRR. ABD - SOFT WITH TENDERNESS BOTH UPPER QUADRANTS. EXT WITH MINIMAL EDEMA. BED IS LOW, SIDE RAILS UP X 2. CALL LIGHT IN REACH. PT IS CONCERNED BECAUSE SHE DOES NOT HAVE IV ACCESS AT THIS TIME. HER IV BECAME INFILTRATED. I TOLD HER THAT I WILL CALL MELINA SANON, IV ACCESS NURSE.
--- NOTE | 2016-12-06 08:00 | NUR ---
CALLED MELINA SANON RN FOR IV ACCESS. SHE STATES THAT SHE IS PUTTING IN A PICC LINE AT THIS TIME AND WILL BE HERE SHORTLY.
--- NOTE | 2016-12-06 08:35 | NUR ---
PT UP IN KITCHEN MAKING HER SOME CHICKEN BROTH AND GETTING SOME COFFEE. SHE ASKED WHEN IV ACCESS NURSE WILL BE HERE.
--- NOTE | 2016-12-06 08:50 | NUR ---
MELINA SANON RN IS HERE TO START IV AT THIS TIME.
--- NOTE | 2016-12-06 09:39 | NUR ---
IV PATENT R HAND. PT WAS A LITTLE BIT UNCOMFORTABLE BECAUSE IT WAS STICKING OUT OVER HER KNUCKES AND SHE THOUGHT SHE MAY BUMP IT. WRAPPED WITH 4X4 GAUZE. PT COMFORTABLE.
--- NOTE | 2016-12-06 10:13 | NUR ---
PT IS RESTING IN BED. SHE STATES PAIN IS NOW ABOUT A 5. NO OTHER COMPLAINTS OFFERED.
--- NOTE | 2016-12-06 10:32 | NUR ---
PT IS UP AMBULATING IN HALLWAY WITH HER DAD WHO CAME TO SEE HER.
--- NOTE | 2016-12-06 10:55 | NUR ---
PT IS RESTING. SHE OFFER NO COMPLAINTS. BED IA LOW, SIDE RAILS UP X 2 AND CALL LIGHT IN REACH.
--- NOTE | 2016-12-06 12:12 | NUR ---
PT REQUEST PAIN MED. STATES HER PAIN IS A 8 IN HER UPPER ABDOMEN. DILAUDID GIVEN IV.
--- NOTE | 2016-12-06 13:26 | NUR ---
DR ASKEW HERE TO SEE PT. SHE STATES THAT PT HAS A HISTORY OF OUTBURST AND IF THIS IS TO HAPPEN TO CALL AND GET PT TRANSFERRED IMMEDIATELY. SHE STATED THAT SHE FELT THAT THIS PT IS NOT APPROPRIATE FOR THIS FLOOR.
--- NOTE | 2016-12-06 13:27 | NUR ---
PT WAS GIVEN HER PANCREASE TABS PO.
--- NOTE | 2016-12-06 15:35 | NUR ---
PT STATES HER PAIN IS A 7 1/2 - 8. SHE REQUEST HER DILAUDID. GIVEN IV ORDERED.
--- NOTE | 2016-12-06 16:37 | NUR ---
PT WANTED TO TALK TO DIETARY TO SEE WHAT SHE COULD HAVE. PT IS HUNGRY AND WANTS SOME MASH POTATOES. WE CAN THIN THEM OUT WITH MILK. DIETARY DISCUSSED OTHER THINGS OFFERED FOR HER.
--- NOTE | 2016-12-06 17:06 | NUR ---
PT C/O PAIN WHERE HER IV INFILTRATED R AC. IT IS RED AND HAS A SMALL KNOT. ICE PACK GIVEN TO PUT ON THIS. SHE STATES THAT IT MAKES IT FEEL BETTER.
--- NOTE | 2016-12-06 19:15 | NUR ---
PT SITTING UP IN BED WATCHING TV. DENIES NEEDS. BED LOW. PHONE AND CALL LIGHT IN REACH. SRX2.
--- NOTE | 2016-12-06 21:09 | NUR ---
PT RECEIVED SITTING UP IN BED WATCHING TV AT THIS TIME. ASSESSMENT COMPLETED PER FLOW SHEET. PT RATES PAIN 6/10. PT DENIES NEEDS AT THIS TIME. REQUESTS MEDICATION WHEN IT IS DUE FOR PAIN. BED LOW. PHONE AND CALL LIGHT IN REACH. SRX2.
[2016-12-06 21:15] VITALS: BP 159/91
--- NOTE | 2016-12-07 00:44 | NUR ---
PT SITTING UP IN BED WATCHING TV AT THIS TIME. PT DENIES NEEDS. BED LOW. PHONE AND CALL LIGHT IN REACH. SRX2.
[2016-12-07 00:45] VITALS: BP 150/93
--- NOTE | 2016-12-07 01:41 | NUR ---
PT SITTING UP IN BED WATCHING TV AT THIS TIME. DENIES NEEDS. BED LOW. PHONE AND CALL LIGHT IN REACH. SRX2.
[2016-12-07 03:39] VITALS: BP 149/93
--- NOTE | 2016-12-07 03:39 | NUR ---
PT RESTING QUIETLY AT THIS TIME WITH EYES CLOSED. AROUSED EASILY. DENIES NEEDS AT THIS TIME. BED LOW. PHONE AND CALL LIGHT IN REACH. SRX2.
[2016-12-07 05:02] LABS: BASOPHILS 0.5 % (0-2); HEMATOCRIT 35.8 % (36.0-48.0); HEMOGLOBIN 11.8 g/dL (12-16); IMMATURE GRANULOCYTES 0.4 % (0-5); LYMPHOCYTES 22.8 % (15-50); MCH 32.2 pg (26.0-34.0); MCV 97.5 fL (80.0-100.0); MEAN PLATELET VOLUME 11.3 fL (7.4-10.4); MONOCYTES 8.7 % (2-11); NEUTROPHILS 63.6 % (40-80); PLATELET COUNT 524 10x3/uL (130-400); RBC 3.67 10x6/uL (4.00-5.40); RDW 14.6 % (11.5-14.5)
[2016-12-07 05:16] LABS: AMYLASE - SERUM 43 U/L (25-115); LIPASE 563 U/L (73-393)
[2016-12-07 06:35] LABS: CALC OSMOLALITY 285 mosm/kg (275-300); CALCIUM 8.7 mg/dL (8.5-10.1); CARBON DIOXIDE 26.6 mmol/L (21.0-32.0); CHLORIDE - SERUM 103 mmol/L (98-107); CREATININE - SERUM 0.8 mg/dL (0.6-1.3); POTASSIUM - SERUM 4.7 mmol/L (3.5-5.1); SODIUM 138 mmol/L (136-145); UREA NITROGEN 5 mg/dL (7-18); eGFR NON AFRICAN AMERICAN 81 mL/min (90-120)
[2016-12-07 06:51] LABS: GLUCOSE 327 mg/dL (74-106)
--- NOTE | 2016-12-07 07:30 | NUR ---
SITTING UP IN BED C/O PAIN 5/10 IN ABDOMEN, DILAUDID ADMINISTERED. DENIES ANY OTHER NEEDS AT THIS TIME. CALL LIGHT IN REACH. WILL CONTINUE TO MONITOR.
[2016-12-07 07:40] VITALS: BP 160/98
--- NOTE | 2016-12-07 09:59 | NUR ---
SITTING UP IN BED WATCHING TV. DENIES ANY NEEDS AT THIS TIME. CALL LIGHT IN REACH. WILL CONTINUE TO MONITOR.
--- NOTE | 2016-12-07 12:02 | NUR ---
sitting up in bed watching tv. pleasant affect. denies any needs at this time. will continue to monitor. call light in reach. c/o of nausea and requests meds
--- NOTE | 2016-12-07 13:40 | NUR ---
SITTING UP IN BED WATCHING TV. C/O CONSTANT PAIN IN ABDOMEN 12/29. ADMINISTERED DILAUDID 1MG. WILL CONTINUE TO MONITOR. CALL LIGHT IN REACH
[2016-12-07 15:59] LABS: HEMOGLOBIN A1C 6.2 % (4.8-6.0)
[2016-12-07 16:00] VITALS: BP 161/89
--- NOTE | 2016-12-07 16:35 | NUR ---
* Is the patient Alert and Oriented? Yes 0 * How many steps to enter\exit or inside your home? 3 0 * PCP Dr. Trivedi 0 * Pharmacy [facility] [address] 0 * Preadmission Environment Home Alone 0 * ADLs Independent 0 * Equipment Shower Chair 0 * List name and contact numbers for known caregivers / representatives who currently or will assist patient after discharge: Father - Thomas Harp 0 * Additional services required to return to the preadmission environment? No 0 * Can the patient safely return to the preadmission environment? Yes 0 * Has this patient been hospitalized within the prior 30 days at any hospital? No Patient Name: DEREK VALENZUELA Admission Status: Urgent Accout number: [id number] Admission Date: 12-01-2016 : 1970 Admission Diagnosis:EPIGASTRIC PAIN Attending: CHALINO Current LOS: 6 Anticipated DC Date: 12-09-2016 Planned Disposition: Home Primary Insurance: [facility] Discharge Planning Comments: CM met with patient to assess dc plans/needs. Patient is alert & oriented x3. She states she lives alone & is independent with all ADL's. She states her father will drive home when discharged. She does not use any assistive devices for mobility and does not have home health services, although she requests assistance with mopping, laundry, etc. Explained home health services do not provide those services, but if nursing services are needed, we can arrange home health evaluation at discharge. She is agreeable. Answered all questions and concerns. CM will follow assist as needed. Political Scientist: Karina Milian
--- NOTE | 2016-12-07 17:07 | NUR ---
PT BROUGHT TO MY ATTENTION THIS MORNING A SPOT ON THE BACK OF HER HEAD ON LEFT SIDE A SMALL AREA WITH A SMALL BLACK SPOT IN THE MIDDLE OF IT. PUT A WARM COMPRESS ON IT AND PT STATED IT FELT BETTER. THIS AFTERNOON PT CALLS AND STATES "THAT IT HAS GOTTEN BIGGER AND PAIN IS RADIATING UP MY HEAD". I EXAMINED AREA AND THE AREA IS RED AND WARM TO TOUCH WITH SMALL WHITE HEAD BENEATH THE SCABBED AREA. AREA IS HARD WHEREAS THIS MORNING IT WAS NOT. ADVISED LAZARUS HI OF FINDINGS.
--- NOTE | 2016-12-07 18:52 | NUR ---
SITTING UP IN BED WATCHING TV. DENIES ANY NEEDS AT THIS TIME. WILL CONTINUE TO MONTIOR. CALL LIGHT IN REACH
[2016-12-07 19:35] VITALS: BP 165/102
--- NOTE | 2016-12-07 19:35 | NUR ---
ASSESSMENT PER FLOW SHEET, VS OBTAINED, IV IN RIGHT HAND INTACT WITH NO REDNESS OR EDEMA INFUSING VIA PUMP 1/2 NS AT 100ML/HR, PT REPORTS FLATUS, NO BM AND VOIDING BY SELF WITH NO DIFFICULTY, PT C/O ABD PAIN, REQUESTS PAIN MED, PT ALSO REPORTS LOSING NICOTINE PATCH IN SHOWER, REPORTS GIVING THE PATCH TO KIMBERLY ESPINOZA RN, WHICH THE PATCH WAS THROWN AWAY,
--- NOTE | 2016-12-07 19:55 | NUR ---
SPOKE TO PHARMACIST, REPORT OF PATCH OFF AND THROWN AWAY, OK TO PLACE ANOTHER ONE ON
--- NOTE | 2016-12-07 19:57 | NUR ---
ADM DILAUDID SIVP AND PLACED NICOTINE PATCH TO LEFT ARM, SEE EMAR
--- NOTE | 2016-12-07 20:30 | NUR ---
PT WATCHING TV, DENIES NEEDS AT THIS TIME
--- NOTE | 2016-12-07 21:21 | NUR ---
PT AWAKE, WATCHING TV, FSBS 98, INFORMED PT THAT I WILL BE BACK IN A FEW MINUTES TO ADM MEDS, PT VERBALIZES UNDERSTANDING
--- NOTE | 2016-12-07 21:33 | NUR ---
PT AMB TO [facility] AND BACK TO ROOM, GAIT STEADY
--- NOTE | 2016-12-07 21:50 | NUR ---
ADM 2100 MEDS PER MD ORDERS, SEE EMAR, PT DENIES NEEDS AT THIS TIME
--- NOTE | 2016-12-07 22:58 | NUR ---
PT ROVING DEPARTMENT END FINDER LIGHT, PT C/O PAIN, ADM DILAUDID SIVP PER MD ORDERS, SEE EMAR, INFORMED PT THAT I WILL BE BACK AROUND 11:30 PM TO OBTAIN VS, PT VERBALIZES UNDERSTANDING
[2016-12-07 23:30] VITALS: BP 159/92
--- NOTE | 2016-12-07 23:30 | NUR ---
PT AWAKE, VS OBTAINED, PT REPORTS PAIN IS BETTER, STATES "THAT'S EXACTLY WHAT I NEEDED", DENIES NEEDS AT THIS TIME
--- NOTE | 2016-12-08 00:32 | NUR ---
PT RESTING WITH EYES CLOSED, RESP QUIET, NO DISTRESS NOTED, LEFT UNDISTURBED AT THIS TIME
--- NOTE | 2016-12-08 02:09 | NUR ---
PT TRANSFORMER ASSEMBLER LIGHT, IV BEEPING, NEW BAG OF 1/2NS HUNG VIA PUMP PER MD ORDERS, SEE EMAR, PT DENIES NEEDS OR PAIN AT THIS TIME
--- NOTE | 2016-12-08 03:25 | NUR ---
PT RESTING WITH EYES CLOSED, RESP QUIET, NO DISTRESS NOTED, LEFT UNDISTURBED AT THIS TIME, PUMP CLEARED
[2016-12-08 05:24] VITALS: BP 140/82
--- NOTE | 2016-12-08 05:24 | NUR ---
PT AWAKE, STATES "I DON'T FEEL VERY GOOD", ADM PROTONIX PO AND DILAUDID SIVP PER MD ORDERS, SEE EMAR, VS OBTAINED, PT DENIES FURTHER NEEDS AT THIS TIME
--- NOTE | 2016-12-08 07:00 | NUR ---
SHFIT REPORT TO DAY SHIFT
[2016-12-08 07:02] LABS: BASOPHILS 0.3 % (0-2); EOSINOPHILS 2.4 % (0-7); HEMATOCRIT 38.6 % (36.0-48.0); HEMOGLOBIN 12.6 g/dL (12-16); IMMATURE GRANULOCYTES 0.4 % (0-5); LYMPHOCYTES 16.5 % (15-50); MCH 31.6 pg (26.0-34.0); MCHC 32.6 g/dL (31.0-37.0); MCV 96.7 fL (80.0-100.0); MEAN PLATELET VOLUME 11.1 fL (7.4-10.4); MONOCYTES 9.1 % (2-11); NEUTROPHILS 71.3 % (40-80); PLATELET COUNT 597 10x3/uL (130-400); RBC 3.99 10x6/uL (4.00-5.40); RDW 14.9 % (11.5-14.5)
[2016-12-08 07:03] LABS: CALCIUM 8.9 mg/dL (8.5-10.1); CARBON DIOXIDE 27.6 mmol/L (21.0-32.0); CHLORIDE - SERUM 101 mmol/L (98-107); CREATININE - SERUM 0.7 mg/dL (0.6-1.3); LIPASE 199 U/L (73-393); SODIUM 137 mmol/L (136-145); UREA NITROGEN 4 mg/dL (7-18); eGFR NON AFRICAN AMERICAN > 90 mL/min (90-120)
[2016-12-08 07:04] LABS: CALC OSMOLALITY 275 mosm/kg (275-300); GLUCOSE 182 mg/dL (74-106); POTASSIUM - SERUM 3.9 mmol/L (3.5-5.1)
--- NOTE | 2016-12-08 07:35 | NUR ---
LYING IN BED SUPINE RESTING QUIETLY. C/O OF NOT FEELING WELL AND PAIN IN ABDOMEN AND BACK OF HEAD 12/29. PT FEELS WARM CKD TEMP 101.3. ADMINISTERED MOTRIN 800MG. WILL CONTINUE TO MONITOR. CALL LIGHT IN REACH.
[2016-12-08 07:45] VITALS: BP 139/83
--- NOTE | 2016-12-08 09:00 | NUR ---
APPLIED MOIST HEAT TO BACK OF PT NECK. ADVISED PT TO REMOVE HEAT AT 0920. WILL CONTINUE TO MONITOR CALL LIGHT IN REACH
--- NOTE | 2016-12-08 10:30 | NUR ---
OUT OF ROOM IN NOURISHMENT ROOM GETTING COFFEE. TEMP IS DOWN TO 99.3 AND PT STATES SHE STILL FEELS BAD BUT NOT LIKE SHE DID THIS MORNING. WILL CONTINUE TO MONITOR.
--- NOTE | 2016-12-08 11:58 | NUR ---
SITTING UP IN BED VISITING WITH FAMILY. DENIES ANY NEEDS AT THIS TIME. NO GRIMMACING OR SIGNS OF SIGNIFICANT PAIN AT THIS TIME. CALL LIGHT IN REACH. WILL CONTINUE TO MONITOR.
--- NOTE | 2016-12-08 13:15 | NUR ---
PT REQUESTED PAIN MEDICATION. DILAUDID GIVEN IV. HER PAIN LEVEL SHE STATES IS AN 8.
--- NOTE | 2016-12-08 13:21 | NUR ---
Nutrition Follow Up: Pt was asleep at the time of RD visit. Interview deferred at this time. Noted diet advanced today to regular low fat. Pt is eating 75% meal avg on a full liquid diet (diet adv today). +BM 12/03/16. Wt stable. Labs reviewed - Glucose elevated; Amylase/Lipase WNL. Meds noted including Humalog. Rec continue current diet as tolerated. If glucose continues elevated rec changing diet to diabetic low fat. Will provide selective menus and honor food preferences. RD following.
--- NOTE | 2016-12-08 15:55 | NUR ---
PT OFF FLOOR VIA WHEELCHAIR TO CT.
--- NOTE | 2016-12-08 16:23 | NUR ---
RECIEVED BACK ON FLOOR VIA W/C
[2016-12-08 16:30] VITALS: BP 138/88
--- NOTE | 2016-12-08 18:25 | NUR ---
SITTING UP IN BED EATING DINNER. DENIES ANY NEEDS AT THIS TIME. CALL LIGHT IN REACH.
--- NOTE | 2016-12-08 19:20 | NUR ---
PM ROUNDS MADE, PT WATCHING TV, INFORMED PT THAT I WILL BE BACK SHORTLY TO DO ASSESSMENT, PT VERBALIZES UNDERSTANDING, REQUESTED AND PROVIDED A BANDAID, PT DENIES FURTHER NEEDS
--- NOTE | 2016-12-08 19:40 | NUR ---
DR NELSON TO ROOM FOR EVALUATION
--- NOTE | 2016-12-08 20:10 | NUR ---
PT RESTING WITH EYES CLOSED, RESP QUIET, NO DISTRESS NOTED, LEFT UNDISTURBED AT THIS TIME
[2016-12-08 21:01] VITALS: BP 134/83
--- NOTE | 2016-12-08 21:01 | NUR ---
PT SHRIMP CLEANER LIGHT, C/O ABD PAIN, ASSESSESSMENT PER FLOW SHEET, VS OBTAINED, IV IN RIGHT HAND INTACT WITH NO REDNESS OR EDEMA INFUSING VIA PUMP 1/2NS AT 75ML/HR, PT REPORTS FLATUS, NO BM AND VOIDING BY SELF WITH NO DIFFICULYT, FSBS 240, ADM 2100 MEDS PO PER MD ORDERS, SEE EMAR, WILL HAVE TO ADM TRAZADONE WHEN PHARMACY BRINGS IT, ADM DILAUDID SIVP PER MD ORDERS, SEE EMAR, CONSENTS SIGNED AND WITNESSED, PT INST ON NPO AFTER MIDNIGHT, VERBALIZES UNDERSTANDING, TRASH REMOVED
--- NOTE | 2016-12-08 21:31 | NUR ---
ADM INSULIN SUBQ IN RIGHT ARM, VERIFIED PER THIS NURSE AND KIMBERLY ESPINOZA, RN, PT INST ON HAVING BEDTIME SNACK, PT REQUESTS TO EAT CREAM OF WHEAT
--- NOTE | 2016-12-08 21:38 | NUR ---
ADM TRAZADONE PO PER MD ORDERS, SEE EMAR, PT DENIES FURTHER NEEDS AT THIS TIME
--- NOTE | 2016-12-08 22:00 | NUR ---
PT EATING CREAM OF WHEAT, PT RATES ABD PAIN 6/10, DENIES NEEDS AT THIS TIME
--- NOTE | 2016-12-08 22:27 | NUR ---
PT AT BROADCAST OPERATIONS TECHNICIAN, REQUESTED AND PROVIDED SCRUB PANTS, DENIES FURTHER NEEDS
--- NOTE | 2016-12-08 23:25 | NUR ---
PT AMB TO [facility], GAIT STEADY, BACK TO ROOM
[2016-12-08 23:35] VITALS: BP 139/85
--- NOTE | 2016-12-08 23:35 | NUR ---
PT BACK IN BED, VS OBTAINED, PT C/O ABD PAIN, INFORMED PT THAT I WILL ADM PAIN MED WHEN DUE, PT VERBALIZES UNDERSTANDING, PT ALSO INFORMED AGAIN OF NPO AFTER MIDNIGHT, PT VERBALIZES UNDERSTANDING, DENIES NEEDS AT THIS TIME
--- NOTE | 2016-12-09 00:10 | NUR ---
ADM STEVEN LIZARRAGA PER MD ORDERR, SEE EMAR, PT DENIES FURTHER NEEDS
--- NOTE | 2016-12-09 00:50 | NUR ---
PT RESTING WITH EYES CLOSED, RESP QUIET, NO DISTRESS NOTED, LEFT UNDISTURBED AT THIS TIME
--- NOTE | 2016-12-09 02:00 | NUR ---
PT RESTING WITH EYES CLOSED, RESP QUIET, NO DISTRESS NOTED, LEFT UNDISTURBED AT THIS TIME
--- NOTE | 2016-12-09 04:35 | NUR ---
PT RESTING WITH EYES CLOSED, RESP QUIET, NO DISTRESS NOTED, LEFT UNDISTURBED AT THIS TIME
[2016-12-09 05:54] VITALS: BP 128/79
--- NOTE | 2016-12-09 05:54 | NUR ---
PT AWAKE, LAB OUT OF ROOM AFTER BLOOD DRAW, PT C/O ABD PAIN, ADM DILAUDID SIVP AND HUNG NEW BAG OF 1/2NS PER MD ORDERS, SEE EMAR, VS OBTAINED, PT INFORMED THAT PROTONIX WILL BE HELD DUE TO NPO, PT VERBALIZES UNDERSTANDING, DENIES FURTHER NEEDS AT THIS TIME
[2016-12-09 06:17] LABS: BASOPHILS 0.6 % (0-2); EOSINOPHILS 3.3 % (0-7); HEMATOCRIT 36.5 % (36.0-48.0); HEMOGLOBIN 12.2 g/dL (12-16); IMMATURE GRANULOCYTES 0.4 % (0-5); LYMPHOCYTES 17.8 % (15-50); MCH 32.9 pg (26.0-34.0); MCHC 33.4 g/dL (31.0-37.0); MCV 98.4 fL (80.0-100.0); MONOCYTES 9.2 % (2-11); NEUTROPHILS 68.7 % (40-80); PLATELET COUNT 587 10x3/uL (130-400); RBC 3.71 10x6/uL (4.00-5.40); WBC 13.7 10x3/uL (4.8-10.8)
[2016-12-09 06:41] LABS: ALBUMIN 2.7 g/dL (3.4-5.0); ANION GAP 10.2 mmol/L (8-16); BILIRUBIN - TOTAL 0.2 mg/dL (0.2-1.3); CALCIUM 8.8 mg/dL (8.5-10.1); CARBON DIOXIDE 28.7 mmol/L (21.0-32.0); PROTEIN - SERUM 6.4 g/dL (6.4-8.2)
[2016-12-09 06:53] LABS: CREATININE - SERUM 0.9 mg/dL (0.6-1.3); POTASSIUM - SERUM 4.9 mmol/L (3.5-5.1)
--- NOTE | 2016-12-09 07:00 | NUR ---
SHIFT REPORT TO KOLTON LEHMAN RN
--- NOTE | 2016-12-09 07:08 | NUR ---
SPOKE TO DR JEONG REGARDING NPO, ORDERS PER DR JEONG TO ADM AM MEDS PO WITH SMALL SIP OF WATER, AND ADM 1/2 DOSE OF INSULIN AND THEN REPEAT BLOOD SUGAR IN 45 MINUTES
--- NOTE | 2016-12-09 07:30 | NUR ---
PT WAS RECEIVED THIS AM LYING IN BED. VSS. PT STATES THAT SHE IS NOT HAVING ANY PAIN AT THIS TIME. AT BEDSIDE. GEN- AWAKE AND ALERT. LUNGS- CLEAR. HEART- RRR. ABD- SOFT WITH TENDERNESS NOTED. BIKINI LINE INCISION WITH STERI STRIPS. INCISION IS CLEAN AND DRY. EXT- WITH MINIMAL EDEMA. SALINE LOCK PATENT R HAND. BED IS LOW, SIDE RAILS UP X 2 AND CALL LIGHT IN REACH.
--- NOTE | 2016-12-09 07:32 | NUR ---
ADM AM MEDS AND 1/2 INSULIN PER SLIDING SCALE PER DR JEONG ORDERS, KOLTON LEHMAN, RN INFORMED THAT FSBS IS DUE 45 MINUTES FROM ADM OF INSULIN
[2016-12-09 07:43] VITALS: BP 127/80
--- NOTE | 2016-12-09 08:21 | NUR ---
PTS BS WAS RECHECKED AND IT WAS 258. BEEPED DR JEONG.
--- NOTE | 2016-12-09 08:30 | NUR ---
PT C/O HEADACHE. SHE WOULD LIKE MOTRIN. GIVEN.
--- NOTE | 2016-12-09 08:32 | NUR ---
DR JEONG RETURNED MY CALL. TOLD HIM BS WAS 258. HE STATES THAT IS GREAT. NO NEW ORDERS.
--- NOTE | 2016-12-09 13:28 | NUR ---
PT REQUEST PAIN MED. PAIN LEVEL IS A 6 IN HER ABDOMEN. FOB AT BEDSIDE. BED IS LOW, SIDE RAILS UP X 2 AND CALL LIGHT IN REACH.
--- NOTE | 2016-12-09 15:55 | NUR ---
POSTERIOR NECK AND LEFT WRIST IRRIGATEDD WITH MARIANO KWON.
--- NOTE | 2016-12-09 16:41 | NUR ---
PHENERGAN 25MG IVP GIVEN PER ORDERS - DILUTED 1:1 WITH NS, 25 ML GIVEN SLOW IVP
[2016-12-09 17:15] VITALS: BP 135/91
--- NOTE | 2016-12-09 17:15 | NUR ---
PATIENT TO ROOM AT THIS TIME. VS STABLE. DRESSING TO NECK CLEAN AND DRY. IV INTACT. EYES CLOSED RESTING. NO COMPLAINTS. CALL LIGHT WITHIN REACH.
--- NOTE | 2016-12-09 17:45 | NUR ---
PATIENT UP TO BR X 1 ASSIST WITH NO PROBLEMS. VOIDED WITH NO PROBLEMS WELL. IV INTACT. VS STABLE. CALL LIGHT WITHIN REACH.
--- NOTE | 2016-12-09 18:55 | NUR ---
SPOKE WITH ANASTASIA HARRIS ABOUT PATIENT NOT RECIEVING DINNER TRAY. DIET ORDER PUT IN AT 1556 AND MESSAGE SENT AT 1814. PATIENT EXPECTING TRAY AND UPSET. ANASTASIA STATED SHE WOULD SPEAK WITH DIETARY.
--- NOTE | 2016-12-09 19:45 | NUR ---
PT IS RESTING IN BED WITH EYES OPEN. ALERT AND ORIENTED X 3. DENIES ACUTE DISCOMFORT AT THIS TIME. DRESSINGS TO LEFT WRIST AND BACK OF NECK ARE CDI. IV IS INFUSING TO RIGHT HAND WITHOUT DIFFICULTY. NO REDNESS OR EDEMA NOTED AT THE INSERTION SITE. SR'S ARE UP X 2 IN BED. CALL LIGHT AND BEDSIDE TABLE ARE WITHIN EASY REACH.
[2016-12-09 20:00] VITALS: BP 120/71
--- NOTE | 2016-12-09 22:14 | NUR ---
PT IS RESTING QUIETLY IN BED WITH EYES OPEN. NO ACUTE DISTRESS NOTED.
[2016-12-10] VITALS: BP 116/75
--- NOTE | 2016-12-10 00:41 | NUR ---
PT IS RESTING IN BED WITH EYES OPEN. ACQUISITION COST ESTIMATOR DOING VITAL SIGNS. PT VOICED COMPLAINT OF NECK PAIN LEVEL OF 7. WILL MEDICATE PER JUL.
--- NOTE | 2016-12-10 03:21 | NUR ---
PT RESTING IN BED WITH EYES CLOSED.
[2016-12-10 04:00] VITALS: BP 106/51
[2016-12-10 05:01] LABS: BASOPHILS 0.6 % (0-2); EOSINOPHILS 4.5 % (0-7); HEMATOCRIT 34.6 % (36.0-48.0); HEMOGLOBIN 11.3 g/dL (12-16); IMMATURE GRANULOCYTES 0.4 % (0-5); LYMPHOCYTES 20.6 % (15-50); MCH 32.2 pg (26.0-34.0); MCHC 32.7 g/dL (31.0-37.0); MCV 98.6 fL (80.0-100.0); MEAN PLATELET VOLUME 11.1 fL (7.4-10.4); MONOCYTES 8.8 % (2-11); NEUTROPHILS 65.1 % (40-80); PLATELET COUNT 607 10x3/uL (130-400); RBC 3.51 10x6/uL (4.00-5.40); RDW 15.1 % (11.5-14.5); WBC 13.5 10x3/uL (4.8-10.8)
--- NOTE | 2016-12-10 05:01 | NUR ---
ASSESSED, PT IS ASLEEP WITH A KRISTIE BEAR WRAPPED UP IN HIS ARMS. EASY RESPIRATIONS AND NO DISTESS NOTED. THE BED IS LOW, RAILS UP X'S 2 WITH THE CALL LIGHT AT HAND.
[2016-12-10 05:21] LABS: CALC OSMOLALITY 279 mosm/kg (275-300); CALCIUM 8.5 mg/dL (8.5-10.1); CHLORIDE - SERUM 101 mmol/L (98-107); CREATININE - SERUM 0.8 mg/dL (0.6-1.3); GLUCOSE 300 mg/dL (74-106); LIPASE 226 U/L (73-393); POTASSIUM - SERUM 4.5 mmol/L (3.5-5.1); SODIUM 135 mmol/L (136-145); UREA NITROGEN 10 mg/dL (7-18); eGFR NON AFRICAN AMERICAN 81 mL/min (90-120)
--- NOTE | 2016-12-10 06:00 | NUR ---
PT RESTING IN BED WITH EYES CLOSED. AWOKE EASILY TO VERBAL STIMULI. VOICED COMPLAINT OF NECK PAIN LEVEL OF 6. MEDICATED PER JUL.
--- NOTE | 2016-12-10 07:25 | NUR ---
A&O, COMPLAINTS OF PAIN, PAIN MEDS DUE AR 0730, BED LOWEST POSITION, CALL LIGHT IN REACH, WILL CONTINUE TO MONITOR
[2016-12-10 09:13] VITALS: BP 114/60
[2016-12-10 13:11] VITALS: BP 117/72
--- NOTE | 2016-12-10 16:00 | NUR ---
AWAKE AND ALERT AT THIS TIME. DRESSING TO LEFT NECK C/D/I. RESPIRATIONS EVEN AND NON LABORED. CALL LIGHT IN REACH, WILL CONTINUE WITH PLAN OF CARE.
[2016-12-10 18:05] VITALS: BP 138/86
--- NOTE | 2016-12-10 19:38 | NUR ---
PT IS RESTING IN BED WITH EYES OPEN. ALERT AND ORIENTED X 3. VOICED COMPLAINT OF NECK PAIN LEVEL OF 3 AT THIS TIME. DRESSINGS TO NECK AND LEFT WRIST ARE CDI. IV INFUSING TO LEFT HAND WITHOUT DIFFICULTY. SR'S ARE UP X 2 IN BED. CALL LIGHT AND BEDSIDE TABLE ARE WITHIN EASY REACH.
[2016-12-10 20:00] VITALS: BP 143/96
--- NOTE | 2016-12-10 21:45 | NUR ---
PT SHOWERED SELF INDEPENDENTLY. NO DISTRESS NOTED.
[2016-12-11] VITALS: BP 140/83
--- NOTE | 2016-12-11 00:01 | NUR ---
PT IS RESTING IN BED WITH EYES CLOSED. NO DISTRESS NOTED.
--- NOTE | 2016-12-11 01:03 | NUR ---
AWAKE TALKING TO SELF. VOICES NO CO AT TIME.
--- NOTE | 2016-12-11 03:20 | NUR ---
PT IS RESTING IN BED WITH EYES OPEN. VOICING COMPLAINT OF NECK PAIN LEVEL OF 8. WANTS PAIN MEDICATION JEFF.
[2016-12-11 04:00] VITALS: BP 128/92
[2016-12-11 06:53] LABS: BASOPHILS 0.8 % (0-2); HEMATOCRIT 37.8 % (36.0-48.0); HEMOGLOBIN 12.4 g/dL (12-16); IMMATURE GRANULOCYTES 0.4 % (0-5); LYMPHOCYTES 24.9 % (15-50); MCH 32.1 pg (26.0-34.0); MCHC 32.8 g/dL (31.0-37.0); MCV 97.9 fL (80.0-100.0); MEAN PLATELET VOLUME 11.3 fL (7.4-10.4); MONOCYTES 7.5 % (2-11); NEUTROPHILS 61.4 % (40-80); PLATELET COUNT 640 10x3/uL (130-400); RBC 3.86 10x6/uL (4.00-5.40); WBC 13.9 10x3/uL (4.8-10.8)
[2016-12-11 07:06] LABS: ANION GAP 11.5 mmol/L (8-16); CALCIUM 9.5 mg/dL (8.5-10.1); CARBON DIOXIDE 28.8 mmol/L (21.0-32.0); CREATININE - SERUM 0.9 mg/dL (0.6-1.3); POTASSIUM - SERUM 4.3 mmol/L (3.5-5.1)
--- NOTE | 2016-12-11 07:40 | NUR ---
REQUEST PAIN MEDS, PAIN ON NECK WOUND A 8, NO DISTRESS NOTED, CALL LIGHTIN REACH, BED LOWEST POSITION, WILL CONTINUE TO MONITOR
[2016-12-11 09:12] VITALS: BP 126/87
--- NOTE | 2016-12-11 11:57 | NUR ---
PT REQUEST PAIN MEDS FOR PAIN LEVEL 8, DILAUDID 1.5 GIVEN PER ORDER, PT REQUEST I FLUSH HER IV AFTER PUTTING THE DILAUDID IN, I REFUSED, I BUMPED HER NS UP TO 500CC FOR A MINUTE, SHE WANTED ME TO ASK DR ALLRED FOR ANOTHER SHOT RIGHT NOW, I ASKED IF THE PAIN MEDS AREN'T CONTROLING HER PAIN, SHE SAID THAT SHE JUST WANTED A SHOT RIGHT NOW...I TALKED TO DR ALLRED PER PATIENT REQUEST AND HE SAID NO SHE ALREADY HAD HER PAIN MED, I THEN INFORMED PT OF WHAT DR ALLRED SAID, SHE TOLD ME SHE TALKED TO HIM ON THE PHONE AND HE WAS GOING TO VISIT HER SOON. I THEN TOLD HER I WAS JUST INFORMING HER OF WHAT HE TALKED ABOUT
--- NOTE | 2016-12-11 12:20 | NUR ---
WENT INTO ROOM WITH ANASTASIA POLANCO RN DUE TO SMELL OF CIGARETTE SMOKE COMING FROM ROOM. PT ADMITTED TO SMOKING IN ROOM, CIGARETTES TAKEN AWAY AND PLACED IN CASSETT, PT WAS VERY AGGITATED AND SHAKING. INFORMED NURSE, NURSE SPOKE WITH DR. SCHUMACHER CONTINUE TO MONITOR.
--- NOTE | 2016-12-11 13:00 | NUR ---
PT APPEARS ANXIOUS AND IS SHAKING UNCONTROLLABLY, ATIVAN GIVEN PER ORDER 2MG PO, HAS HELPED THE SHAKING, IV FELL OUT TIP INTACT, PT REFUSES TO HAVE ANOTHER IV PLACED, PT WANTS TO GO HOME, DR ALLRED MADE AWARE
--- NOTE | 2016-12-11 15:53 | NUR ---
PT HAS BAGS PACKED AND CALLED PARENTS TO COME PICK HER UP, TALKED TO PT ABOUT WAITING FOR HER DR TO COME BACK IN
--- NOTE | 2016-12-11 16:10 | NUR ---
PATIENT PACKED HER BAGS GOT DRESSED AND WAS LEAVING THE FLOOR, REDIRECTED BACK TO HER ROOM, CALLED DR ALLRED TO INFORM HIM PT WAS WANTING TO LEAVE AMA I CALLED HER PARENTS TO INFORM THEM AND HER FATHER STATED "SHE CAN'T COME HOME RIGHT NOW, CAN I PLEASE SPEAK WITH HER" I TRANSFERED HIM INTO HER ROOM, AFTER SPEAKING WITH HER FATHER SHE DECIDED TO STAY. SHE REQUESTED HER IV BE PLACED AGAIN
--- NOTE | 2016-12-11 16:56 | NUR ---
PT UP WALKING AROUND UNIT DRESSED IN STREET CLOTHES AND HEADING FOR THE EXIT. REDIRECTED BY DEVANG OMALLEY, BACK TO ASSIGNED ROOM. DEVANG OMALLEY, DISCUSSED WITH PT AT LENGTH REGARDING LEAVING AMA AND WAITING FOR THE DR TO COME AND DISCHARGE HER IN THE MORNING. SEE MARILUZ'S NOTES FOR FURTHER DETAILS. X2 ATTEMPTS TO RESTART IV. UNSUCCESSFUL. ASKED LAZARUS WHITE, TO ATTEMPT. PT PARENTS AT BEDSIDE ATTEMPTING TO TALK WITH PT. PT STATES SHE IS STAYING FOR NOW BECAUSE HER PAIN IS TOO MUCH TO GO HOME WITH.
--- NOTE | 2016-12-11 19:50 | NUR ---
RECIEVED SHIFT REPORT. PT IS LYING IN BED. ALERT AND ORIENTED AND ABLE TO VERBALIZE NEEDS. IV IS PATENT BUT PT DOES NOT WANT TO HAVE IV FLUIDS AT THIS TIME. PT IS AMBULATORY BUT WAS INSTRUCTED TO CALL FOR ANY ASSISTANCE NEEDED. PT STATES PAIN IS 6/10. ISOLATION PRECAUTIONS IN PLACE. NO NEEDS ARE VERBALIZED AT THIS TIME. WILL CONTINUE TO MONITOR. SIDE RAILS ARE UP X 2. BED IS IN LOWEST POSITION. CALL LIGHT IS WITHIN REACH.
[2016-12-11 20:00] VITALS: BP 137/90
--- NOTE | 2016-12-11 21:47 | NUR ---
SHIFT ASSESSMENT COMPLETED. NIGHT MEDS GIVEN WITH NO PROBLEMS. PT RECIEVED 4 UNITS INSULIN PER SLIDING SCALE FOR LECS=447. PT C/O PAIN 10/29. ADMINISTERED PRESCRIBED PRN MOTRIN PER ORDER. DENIES FURTHER NEEDS. WILL MONITOR. SIDE RAILS X 2. BED LOW. CALL LIGHT IN REACH.
[2016-12-12 04:00] VITALS: BP 133/87
--- NOTE | 2016-12-12 08:00 | NUR ---
ASSESSMENT COMPLETE. SL TO L AC PATENT. CONTACT ISOLATION. DRESSINGS TO POSTERIOR NECK AND L WRIST INTACT. COMPLAINING OF PAIN. DILAUDID GIVEN SLOW IVP. DENIES ANY FURTHER NEEDS AT THIS TIME.
[2016-12-12 10:44] LABS: ALBUMIN 3.1 g/dL (3.4-5.0); ANION GAP 14.3 mmol/L (8-16); BILIRUBIN - TOTAL 0.19 mg/dL (0.2-1.3); CARBON DIOXIDE 24.3 mmol/L (21.0-32.0); POTASSIUM - SERUM 4.6 mmol/L (3.5-5.1); PROTEIN - SERUM 7.4 g/dL (6.4-8.2)
[2016-12-12 10:58] LABS: BASOPHILS 0.8 % (0-2); EOSINOPHILS 3.9 % (0-7); HEMATOCRIT 40.5 % (36.0-48.0); HEMOGLOBIN 13.1 g/dL (12-16); IMMATURE GRANULOCYTES 0.8 % (0-5); LYMPHOCYTES 20.7 % (15-50); MCHC 32.3 g/dL (31.0-37.0); MCV 98.8 fL (80.0-100.0); MEAN PLATELET VOLUME 11.1 fL (7.4-10.4); MONOCYTES 6.9 % (2-11); NEUTROPHILS 66.9 % (40-80); PLATELET COUNT 740 10x3/uL (130-400); RDW 15.2 % (11.5-14.5)
[2016-12-12 11:00] LABS: WBC 9.5 10x3/uL (4.8-10.8)
--- NOTE | 2016-12-12 11:48 | NUR ---
DILAUDID GIVEN SLOW IVP FOR COMPLAINT OF NECK PAIN.
[2016-12-12] MEDS ORDERED: NORVASC2.5 MG PO (12:33)
[2016-12-12] MEDS ORDERED: NICODERM C1 PATCH .1 TRANSDERM (12:33)
[2016-12-12] MEDS ORDERED: COZAAR50 MG PO (12:33)
[2016-12-12] MEDS ORDERED: CATAPRES0.1 MG PO (12:33)
[2016-12-12] MEDS ORDERED: ASPIRIN325 MG PO (12:34)
[2016-12-12] MEDS ORDERED: PROTONIX40 MG PO (12:35)
[2016-12-12] MEDS ORDERED: Pancrease 5000,17,00 PO (12:35)
[2016-12-12] MEDS ORDERED: FLORAJEN3 CAPS460 MG PO (12:35)
[2016-12-12] MEDS ORDERED: DIFLUCAN100 MG PO (12:36)
[2016-12-12] MEDS ORDERED: DOXYCYCLINE HY100 M2 PO (12:37)
[2016-12-12] MEDS ORDERED: GLUCOPHAGE1000 MG PO (12:46)
--- NOTE | 2016-12-12 14:50 | NUR ---
VCM MET W/ THE PATIENT AT THE BEDSIDE. DISCUSSED DISCHARGE ORDERS. PATIENT WILL ACCEPT HOME HEALTH. HER INSURER IS CONTRACTED W/ [facility]. PATIENT CHOICE FORM SIGNED. PATIENT IS IN AGREEMENT WITH [facility]. CM SPOKE WITH COORDINATOR . WILL SEND SOME DRESSING SUPPLIES HOME WITH THE PATIENT. TC TO [facility]. SPOKE WITH PHIL. FAXED REFERRAL INFORMATION. PATIENT WILL BE SEEN ON Monday12/13/16.
--- NOTE | 2016-12-12 15:35 | NUR ---
CONTINUES COMPLAINING OF NECK PAIN. MOTRIN GIVEN. STATES SHE WILL NOT HAVE RIDE UNTIL AFTER DINNER.
--- NOTE | 2016-12-12 17:08 | NUR ---
DISCHARGE TEACHING GIVEN TO PATIENT. SCRIPT FOR PROBIOTIC GIVEN TO PATIENT. OTHER SCRIPTS WERE ESCRIBED. WILL DC HOME WHEN RIDE AVAILABLE.
--- NOTE | 2016-12-12 18:35 | NUR ---
IV REMOVED. CATHETER TIP INTACT. STATES THAT RIDE WILL BE HERE SOON AND NEEDS MEDICATIONS THAT ARE LOCKED IN PHARMACY.
--- NOTE | 2016-12-12 18:50 | NUR ---
MEDICATIONS FROM PHARMACY GIVEN TO PATIENT. DC'D HOME WITH FAMILY WITH BELONGINGS.
== END 2016-12-12 18:50 | disposition home health service (06) | DRG 438 ==
LOC: D.M2 15:31 → OBSVTIME 15:31 → D.M2 15:31 → D.MS 12-01 14:47 → D.M2 12-01 14:47 → D.WS 12-01 14:47 → D.ICU 12-01 14:47 → D.M2 12-04 19:57 → D.WS 12-05 20:20 → D.MS 12-09 17:13
PROVIDERS: Emergency Medicine; Family Medicine; Internal Medicine Gastroenterology; Surgery; ADMIT Family Medicine
PROC: 0H94XZZ Drainage of Neck Skin, External Approach (ICD-10-PCS; 2016-12-09)
PROC: 0H9EXZZ Drainage of Left Lower Arm Skin, External Approach (ICD-10-PCS; principal; 2016-12-09 13:15)
PROC: 0H94XZZ Drainage of Neck Skin, External Approach (ICD-10-PCS; 2016-12-12)
DX: K85.20 Alcohol induced acute pancreatitis without necrosis or infection (principal); G93.41 Metabolic encephalopathy; L02.11 Cutaneous abscess of neck; L02.414 Cutaneous abscess of left upper limb; K70.30 Alcoholic cirrhosis of liver without ascites; K86.0 Alcohol-induced chronic pancreatitis; R07.9 Chest pain, unspecified; I16.0 Hypertensive urgency; Z86.73 Personal history of transient ischemic attack (TIA), and cerebral infarction without residual deficits; Z72.0 Tobacco use

== ENCOUNTER 2018-02-09 08:00 | Outpatient (CLI) | payer MEDICARE, MEDICAID ==
[2016-12-01 13:44] VITALS: BMI 28.7
[~2018-02-09 08:00] MED LIST: ASPIRIN325 MG PO; CATAPRES0.1 MG PO; COZAAR50 MG PO; DESERYL100 MG PO; DIFLUCAN100 MG PO; DOXYCYCLINE HY100 M2 PO; DURAGESIC1 PATCH .7 TRANSDERM; EFFEXOR XR75 MG PO; FLORAJEN3 CAPS460 MG PO; GLUCOPHAGE1000 MG PO; NEURONTIN 400400 MG PO; NICODERM C1 PATCH .1 TRANSDERM; NORVASC2.5 MG PO; OXYCODONE HCL5 MG PO; PROTONIX40 MG PO; Pancrease 5000,17,00 PO
== END 2018-02-09 08:01 | disposition home or self-care (01) ==
LOC: D.MAMMO 08:00
DX: Z12.31 Encounter for screening mammogram for malignant neoplasm of breast (principal)

== ENCOUNTER → 2018-03-13 17:29 | Outpatient (CLI) | payer MEDICARE, MEDICAID ==
[2016-12-01 13:44] VITALS: BMI 28.7
== END | disposition home or self-care (01) ==
LOC: D.MAMMO 11:30
DX: R92.8 Other abnormal and inconclusive findings on diagnostic imaging of breast (principal)